=== PATIENT | female | born 1980 | race African-American/Black ===

== ENCOUNTER 2023-09-25 16:10 | Emergency (ER) | payer MEDICAID ==
[~2023-09-25] VITALS: Ht 170.2 cm; Wt 88.5 kg
[2023-09-25 16:22] VITALS: BP_SYST 174; PULSE 97; RESP 18; TEMP 98.3; O2SAT 98
[2023-09-25] MEDS ORDERED: AUG875 PO (17:32)
[2023-09-25] MEDS ORDERED: ACET-2634 PO (17:32)
[2023-09-25 18:13] VITALS: BP_SYST 152; PULSE 97; RESP 18; TEMP 98.3; O2SAT 98
== END 2023-09-25 18:14 | disposition home or self-care (01) ==
LOC: SED 16:10
DX: S00.532A Contusion of oral cavity, initial encounter (principal); J02.9 Acute pharyngitis, unspecified; Z88.2 Allergy status to sulfonamides; Z79.899 Other long term (current) drug therapy; X58.XXXA Exposure to other specified factors, initial encounter; Y93.89 Activity, other specified; Y92.89 Other specified places as the place of occurrence of the external cause; Y99.8 Other external cause status
CPT/HCPCS: 99283